=== PATIENT | female | born 2000 | race Caucasian/White ===

== ENCOUNTER → 2019-03-14 | Outpatient (REF) | payer OTHER | LOC: M LAB REF 10:17 | PROVIDERS: ATTEND Physician Assistant | DX: J03.90 Acute tonsillitis, unspecified (principal) ==

== ENCOUNTER → 2024-02-11 | Outpatient (REF) | LOC: M EMP 12:01 | PROVIDERS: ATTEND Family Medicine | DX: Z11.52 Encounter for screening for COVID-19 (principal) ==

== ENCOUNTER → 2024-02-13 | Outpatient (REF) | LOC: M EMP 09:56 | PROVIDERS: ATTEND Family Medicine | DX: Z01.89 Encounter for other specified special examinations (principal) ==

== ENCOUNTER → 2024-06-16 | Outpatient (REF) | LOC: M EMP 10:01 | PROVIDERS: ATTEND Family Medicine | DX: Z11.52 Encounter for screening for COVID-19 (principal) ==

== ENCOUNTER → 2025-05-30 | Outpatient (CLI) | payer OTHER ==
[2025-05-30 12:56] LABS: HCG, SERUM QUALITATIVE NEGATIVE (NEGATIVE); HCG, SERUM QUANTITATIVE 2.6 MIU/ML (<4.2)
== END ==
LOC: M WUC 08:32
PROVIDERS: ATTEND Nurse Practitioner Family
DX: Z32.01 Encounter for pregnancy test, result positive (principal); N93.9 Abnormal uterine and vaginal bleeding, unspecified

== ENCOUNTER → 2025-08-08 | Outpatient (CLI) | payer BC | LOC: M WUC 12:58 | PROVIDERS: ATTEND Nurse Practitioner Family | DX: Z32.01 Encounter for pregnancy test, result positive (principal) ==

== ENCOUNTER → 2025-08-10 | Outpatient (CLI) | payer BC ==
[2025-08-10 17:13] LABS: HCG, SERUM QUANTITATIVE 97.3 MIU/ML (<4.2)
[2025-08-10 17:30] LABS: HCG, SERUM QUALITATIVE POSITIVE (NEGATIVE)
== END ==
LOC: M WUC 15:25
PROVIDERS: ATTEND Nurse Practitioner Family
DX: Z32.01 Encounter for pregnancy test, result positive (principal)

== ENCOUNTER → 2025-08-22 | Outpatient (CLI) | payer BC | LOC: M WUC 13:43 | PROVIDERS: ATTEND Nurse Practitioner Family | DX: Z32.01 Encounter for pregnancy test, result positive (principal) ==

== ENCOUNTER → 2025-08-30 | Outpatient (REF) | payer BC | LOC: M SFHCCLAY 11:56 | PROVIDERS: ATTEND Nurse Practitioner Family | DX: Z32.01 Encounter for pregnancy test, result positive (principal) ==

== ENCOUNTER → 2025-09-09 | Outpatient (REF) | payer BC | LOC: M SFHCCLAY 11:59 | PROVIDERS: ATTEND Nurse Practitioner Family | DX: J02.9 Acute pharyngitis, unspecified (principal) ==

== ENCOUNTER → 2025-09-14 | Outpatient (CLI) | payer BC ==
[2025-09-14 18:33] LABS: Trichomonas vaginalis (AMP) NOT DETECTED (NEGATIVE)
[2025-09-14 18:36] LABS: PLATELET COUNT, AUTOMATED 261 10^3/uL (150-450)
[2025-09-14 18:56] LABS: GC DNA AMPLIFICATION NEGATIVE (NEGATIVE)
[2025-09-14 19:09] LABS: HIV 1&2 SCREEN NEGATIVE (NEGATIVE)
[2025-09-14 19:17] LABS: HEPATITIS C VIRUS ABY INDEX < 0.02 INDEX (<0.8)
== END ==
LOC: MERGE 15:12 → M PLALAB 15:12
PROVIDERS: ATTEND Advanced Practice Midwife
DX: Z34.81 Encounter for supervision of other normal pregnancy, first trimester (principal)